=== PATIENT | male | born 1980 | race African-American/Black ===

== ENCOUNTER 2019-10-17 22:39 | Inpatient (IN) ==
[2019-10-18] MEDS ORDERED: ONDANSETRON 4 MG/2 ML VIAL IV STA (02:32)
[2019-10-18] MEDS ORDERED: NITROGLYCERIN 2% OINT 1 INCH/GM PACK TOP STA (02:32)
[2019-10-18] MEDS ORDERED: hydrALAZINE 20 MG/1 ML VIAL IV STA (02:32)
[2019-10-18] MEDS ORDERED: FUROSEMIDE 100 MG/10 ML VIAL IV STA (02:32)
[2019-10-18] MEDS ORDERED: ALBUTEROL/IPRATROPIUM 3 ML NEB RESP TX STA (02:32)
[2019-10-18 02:42] LABS: Basophils % 0.4 % (0.0-0.8); Eosinophils # 0.3 10*3/uL (0.0-0.87); Eosinophils % 2.6 % (0.00-10.9); Hematocrit 28.8 VOL% (42.0-52.0); Immature Granulocytes % 0.4 %; Immature Granulocytes Absolute 0.04 #; Lymphocytes # 1.1 10*3/uL (1.4-4.0); Lymphocytes % 11.3 % (21.2-54.2); Mean Corpuscular HGB Conc 31.3 GM/DL (32-36); Mean Corpuscular Volume 100.3 FL (87-102); Mean Platelet Volume 12.5 FL (9.6-12.0); Monocytes % 8.7 % (1.7-12.7); Neutrophils % 76.6 % (38.7-73.9); Platelet Count 112 T/CUMM (130-400); Red Blood Count 2.87 MC/CUMM (3.8-5.5); White Blood Count 10.1 T/CUMM (4-12)
[2019-10-18] MEDS ORDERED: CALCIUM CHLORIDE 1,000 MG/10 ML SYRINGE IV STA (02:44)
[2019-10-18 03:03] LABS: INR 1.1; PT Patient Result 11.7 SECS (9.8-11.9)
[2019-10-18 03:08] LABS: Alanine Aminotransferase 16 U/L (16-61); Albumin 3.4 G/DL (3.4-5.0); Alkaline Phosphatase 75 U/L (45-117); Aspartate Amino Transferase 9 U/L (0-37); Bilirubin,Total < 0.39 MG/DL (0.2-1.0); Blood Urea Nitrogen 118 MG/DL (7-18); Calcium 6.1 MG/DL (8.5-10.1); Estimated Glom Filtration Rate 5 ML/MIN; Glucose 92 MG/DL (74-106)
[2019-10-18] MEDS ORDERED: MAGNESIUM SULF RIDER 2 GM in PREMIX 1 EACH IV STA (03:13)
[2019-10-18] MEDS ORDERED: LABETALOL 20 MG/4 ML SYRINGE IV STA (03:26)
[2019-10-18 03:39] LABS: Apearance,Urine CLEAR (Clear); Bacteria,Urine Occasional /HPF (Few); Bilirubin,Urine Negative (Negative); Blood, Urine Moderate mg/dL (Negative); Glucose,Urine (UA) Negative (Negative); Ketones,Urine Negative (Negative); Nitrite,Urine Negative (Negative); Protein,Urine 100 MG/DL; RBC,Urine 2 /HPF (0-4); Squamous Epithelial Cell,Urine Occasional /HPF (0-10); Urine Color Straw (Yellow); Urine Specific Gravity 1.006 (1.001-1.035); Urine Urobilinogen < 2.0 EU/DL (0.2-1.0); WBC,Urine 2 /HPF (0-6)
[2019-10-18] MEDS ORDERED: GLUCAGON 1 MG VIAL IM PRN (04:00)
[2019-10-18] MEDS ORDERED: ONDANSETRON 4 MG/2 ML VIAL IV PRN (04:00)
[2019-10-18] MEDS ORDERED: LABETALOL 100 MG/20 ML VIAL IV PRN (04:00)
[2019-10-18] MEDS ORDERED: DEXTROSE 50% 25 GM/50 ML VIAL IV PRN (04:00)
[2019-10-18] MEDS ORDERED: MAGNESIUM SULF RIDER 4 GM in PREMIX 1 EACH IV ONE (08:33)
[2019-10-18] MEDS ORDERED: AZITHROMYCIN INJ 500 MG in SODIUM CHLORIDE 0.9% 250 ML IV SCH (09:00)
[2019-10-18] MEDS: ACETAMINOPHEN 325 MG TABLET PO PRN (17:12)
[2019-10-18] MEDS: amLODIPine 10 MG TABLET PO SCH (17:16)
[2019-10-18] MEDS: cefTRIAXone 1,000 MG in SYRINGE 1 EACH IV SCH (19:00)
[2019-10-18] MEDS: CALCIUM (CARBONATE) 500 MG TABLET PO SCH (21:18)
[2019-10-18] MEDS: MAGNESIUM CHLORIDE 64 MG TABLET PO SCH (21:18)
[2019-10-19] MEDS: ACETAMINOPHEN 325 MG TABLET PO PRN (05:24)
[2019-10-19 05:49] LABS: Basophils % 0.4 % (0.0-0.8); Eosinophils # 0.3 10*3/uL (0.0-0.87); Eosinophils % 2.8 % (0.00-10.9); Hematocrit 28.6 VOL% (42.0-52.0); Hemoglobin 8.6 GM/DL (14.0-18.0); Immature Granulocytes % 0.5 %; Immature Granulocytes Absolute 0.05 #; Lymphocytes # 0.8 10*3/uL (1.4-4.0); Lymphocytes % 8.6 % (21.2-54.2); Mean Corpuscular HGB Conc 30.1 GM/DL (32-36); Mean Corpuscular Volume 102.5 FL (87-102); Mean Platelet Volume 13.2 FL (9.6-12.0); Monocytes % 9.2 % (1.7-12.7); Neutrophils % 78.5 % (38.7-73.9); Platelet Count 103 T/CUMM (130-400); Red Blood Count 2.79 MC/CUMM (3.8-5.5); White Blood Count 9.4 T/CUMM (4-12)
[2019-10-19 06:09] LABS: Hypochromasia 1+; Platelet Estimate Decreased
[2019-10-19 06:18] LABS: Alanine Aminotransferase 13 U/L (16-61); Albumin 3.1 G/DL (3.4-5.0); Alkaline Phosphatase 69 U/L (45-117); Aspartate Amino Transferase 8 U/L (0-37); Bilirubin,Total < 0.39 MG/DL (0.2-1.0); Blood Urea Nitrogen 121 MG/DL (7-18); Calcium 6.7 MG/DL (8.5-10.1); Estimated Glom Filtration Rate 5 ML/MIN; Glucose 89 MG/DL (74-106); Osmolality,Calculated 320.1 MOS/KG (273-304); Total Protein 7.3 G/DL (6.4-8.3)
[2019-10-19] MEDS: amLODIPine 10 MG TABLET PO SCH (08:55)
[2019-10-19] MEDS: CALCIUM (CARBONATE) 500 MG TABLET PO SCH ×3 (08:55→20:34)
[2019-10-19] MEDS: MAGNESIUM CHLORIDE 64 MG TABLET PO SCH ×2 (08:55→20:34)
[2019-10-19] MEDS: cefTRIAXone 1,000 MG in SYRINGE 1 EACH IV SCH (08:56)
[2019-10-19] MEDS: AZITHROMYCIN INJ 500 MG in SODIUM CHLORIDE 0.9% 250 ML IV SCH (11:55)
[2019-10-19] MEDS: hydrALAZINE 20 MG/1 ML VIAL IV PRN (20:35)
[2019-10-20] MEDS: hydrALAZINE 20 MG/1 ML VIAL IV PRN ×2 (03:35→16:32)
[2019-10-20] MEDS ORDERED: ceFAZolin 1,000 MG in SYRINGE 1 EACH IV ONE (06:00)
[2019-10-20 06:27] LABS: Basophils # 0.1 10*3/uL (0.0-0.2); Basophils % 0.5 % (0.0-0.8); Eosinophils # 0.3 10*3/uL (0.0-0.87); Eosinophils % 2.7 % (0.00-10.9); Hematocrit 30.3 VOL% (42.0-52.0); Hemoglobin 9.1 GM/DL (14.0-18.0); Immature Granulocytes % 0.4 %; Immature Granulocytes Absolute 0.04 #; Lymphocytes % 9.6 % (21.2-54.2); Mean Platelet Volume 12.8 FL (9.6-12.0); Monocytes % 6.4 % (1.7-12.7); Neutrophils % 80.4 % (38.7-73.9); Platelet Count 142 T/CUMM (130-400); Red Blood Count 3.03 MC/CUMM (3.8-5.5); Red Cell Distribution Width 14.1 % (9.3-17.3); White Blood Count 10.2 T/CUMM (4-12)
[2019-10-20 06:50] LABS: Calcium 7.8 MG/DL (8.5-10.1); Osmolality,Calculated 315.4 MOS/KG (273-304)
[2019-10-20] MEDS ORDERED: BUPIVACAINE 0.25% /EPI 10 ML VIAL ONE (08:07)
[2019-10-20] MEDS ORDERED: HEPARIN 5,000 UNIT/1 ML VIAL ONE (08:08)
[2019-10-20] MEDS ORDERED: LIDOCAINE 1% 20 ML VIAL ONE (08:08)
[2019-10-20] MEDS ORDERED: SODIUM CHLORIDE 0.9% 250 ML IV SCH (09:00)
[2019-10-20] MEDS ORDERED: LIDOCAINE 2% 5 ML VIAL ONE (09:25)
[2019-10-20] MEDS ORDERED: propofoL 200 MG/20 ML VIAL IV ONE (09:25)
[2019-10-20] MEDS ORDERED: MIDAZOLAM 2 MG/2 ML VIAL ONE (09:25)
[2019-10-20] MEDS ORDERED: LABETALOL 20 MG/4 ML SYRINGE IV ONE (09:26)
[2019-10-20] MEDS ORDERED: SODIUM CHLORIDE 0.9% 100 ML IV ONE (09:26)
[2019-10-20] MEDS ORDERED: fentaNYL 100 MCG/2 ML VIAL ONE (09:26)
[2019-10-20] MEDS ORDERED: LABETALOL 100 MG/20 ML VIAL IV ONE (09:28)
[2019-10-20] MEDS: amLODIPine 10 MG TABLET PO SCH (11:40)
[2019-10-20] MEDS: CALCIUM (CARBONATE) 500 MG TABLET PO SCH ×3 (11:40→21:25)
[2019-10-20] MEDS: cefTRIAXone 1,000 MG in SYRINGE 1 EACH IV SCH (11:41)
[2019-10-20] MEDS: AZITHROMYCIN INJ 500 MG in SODIUM CHLORIDE 0.9% 250 ML IV SCH (11:41)
[2019-10-20] MEDS: MAGNESIUM CHLORIDE 64 MG TABLET PO SCH ×2 (11:41→21:25)
[2019-10-20 12:24] LABS: Hepatitis B Core IgM Quant 0.13 Index; Hepatitis B Surface Ag Quant 0.43 Index; Hepatitis B Surface Ag Result Negative (Negative); Hepatitis C Virus Ab Quant 0.11 Index; Hepatitis C Virus Ab Result Negative (Negative)
[2019-10-20] MEDS ORDERED: HEPARIN 10,000 UNIT/10 ML VIAL IV SCH (12:30)
[2019-10-20] MEDS: SEVELAMER CARBONATE 800 MG TABLET PO SCH (17:52)
[2019-10-21 05:56] LABS: Basophils % 0.2 % (0.0-0.8); Eosinophils # 0.2 10*3/uL (0.0-0.87); Eosinophils % 2.7 % (0.00-10.9); Hematocrit 25.6 VOL% (42.0-52.0); Immature Granulocytes % 0.2 %; Immature Granulocytes Absolute 0.02 #; Lymphocytes # 0.7 10*3/uL (1.4-4.0); Lymphocytes % 8.1 % (21.2-54.2); Mean Corpuscular HGB Conc 31.3 GM/DL (32-36); Mean Corpuscular Volume 100.4 FL (87-102); Mean Platelet Volume 13.6 FL (9.6-12.0); Monocytes % 9.3 % (1.7-12.7); Neutrophils % 79.5 % (38.7-73.9); Red Blood Count 2.55 MC/CUMM (3.8-5.5); White Blood Count 8.5 T/CUMM (4-12)
[2019-10-21 05:59] LABS: Platelet Count 95 T/CUMM (130-400)
[2019-10-21 06:20] LABS: Calcium 7.5 MG/DL (8.5-10.1); Osmolality,Calculated 316.1 MOS/KG (273-304)
[2019-10-21 06:24] LABS: Hypochromasia 1+; Ovalocytes Slight
[2019-10-21 06:25] LABS: Platelet Estimate Decreased
[2019-10-21] MEDS: CALCIUM (CARBONATE) 500 MG TABLET PO SCH ×3 (10:51→20:57)
[2019-10-21] MEDS: SEVELAMER CARBONATE 800 MG TABLET PO SCH ×3 (10:51→17:12)
[2019-10-21] MEDS: AZITHROMYCIN INJ 500 MG in SODIUM CHLORIDE 0.9% 250 ML IV SCH (13:49)
[2019-10-21] MEDS: MAGNESIUM CHLORIDE 64 MG TABLET PO SCH ×2 (13:51→20:57)
[2019-10-21] MEDS: cefTRIAXone 1,000 MG in SYRINGE 1 EACH IV SCH (14:15)
[2019-10-21] MEDS: amLODIPine 10 MG TABLET PO SCH (14:17)
[2019-10-22 05:07] LABS: Basophils % 0.4 % (0.0-0.8); Eosinophils # 0.2 10*3/uL (0.0-0.87); Eosinophils % 1.9 % (0.00-10.9); Hematocrit 26.8 VOL% (42.0-52.0); Hemoglobin 8.2 GM/DL (14.0-18.0); Immature Granulocytes % 0.4 %; Immature Granulocytes Absolute 0.04 #; Lymphocytes % 9.7 % (21.2-54.2); Mean Corpuscular HGB Conc 30.6 GM/DL (32-36); Mean Corpuscular Volume 100.4 FL (87-102); Mean Platelet Volume 12.4 FL (9.6-12.0); Monocytes % 9.6 % (1.7-12.7); Platelet Count 93 T/CUMM (130-400); Red Blood Count 2.67 MC/CUMM (3.8-5.5); Red Cell Distribution Width 14.1 % (9.3-17.3); White Blood Count 9.8 T/CUMM (4-12)
[2019-10-22 05:29] LABS: Calcium 7.9 MG/DL (8.5-10.1); Osmolality,Calculated 297.4 MOS/KG (273-304)
[2019-10-22 06:52] LABS: Anisocytosis 1+; Band Neutrophils 2 % (0-10); Eosinophils 1 % (0-10); Hypochromasia Slight; Lymphocytes 13 % (20-55); Platelet Estimate Decreased; Segmented Neutrophils 78 % (50-85); Total Cells Counted 100
[2019-10-22] MEDS: SEVELAMER CARBONATE 800 MG TABLET PO SCH ×3 (09:07→19:12)
[2019-10-22] MEDS: amLODIPine 10 MG TABLET PO SCH (09:07)
[2019-10-22] MEDS: CALCIUM (CARBONATE) 500 MG TABLET PO SCH ×3 (09:07→20:49)
[2019-10-22] MEDS: MAGNESIUM CHLORIDE 64 MG TABLET PO SCH ×2 (09:07→20:49)
[2019-10-22] MEDS: cefTRIAXone 1,000 MG in SYRINGE 1 EACH IV SCH (09:10)
[2019-10-22] MEDS: AZITHROMYCIN INJ 500 MG in SODIUM CHLORIDE 0.9% 250 ML IV SCH (09:20)
[2019-10-23 06:37] LABS: Basophils # 0.1 10*3/uL (0.0-0.2); Basophils % 0.5 % (0.0-0.8); Eosinophils # 0.2 10*3/uL (0.0-0.87); Hematocrit 28.6 VOL% (42.0-52.0); Hemoglobin 8.5 GM/DL (14.0-18.0); Immature Granulocytes % 0.5 %; Immature Granulocytes Absolute 0.05 #; Lymphocytes # 1.1 10*3/uL (1.4-4.0); Lymphocytes % 11.4 % (21.2-54.2); Mean Corpuscular HGB Conc 29.7 GM/DL (32-36); Mean Corpuscular Volume 102.1 FL (87-102); Monocytes % 11.2 % (1.7-12.7); Neutrophils % 74.4 % (38.7-73.9); Platelet Count 100 T/CUMM (130-400); Red Cell Distribution Width 14.1 % (9.3-17.3); White Blood Count 9.8 T/CUMM (4-12)
[2019-10-23 06:44] LABS: Calcium 8.6 MG/DL (8.5-10.1); Osmolality,Calculated 283.8 MOS/KG (273-304)
[2019-10-23 07:46] LABS: Ovalocytes Few; Platelet Estimate Adequate; Polychromasia Slight; Target Cells Few
[2019-10-23] MEDS: cefTRIAXone 1,000 MG in SYRINGE 1 EACH IV SCH (09:27)
[2019-10-23] MEDS: SEVELAMER CARBONATE 800 MG TABLET PO SCH ×3 (09:27→16:00)
[2019-10-23] MEDS: amLODIPine 10 MG TABLET PO SCH (09:27)
[2019-10-23] MEDS: CALCIUM (CARBONATE) 500 MG TABLET PO SCH ×3 (09:27→22:07)
[2019-10-23] MEDS: MAGNESIUM CHLORIDE 64 MG TABLET PO SCH ×2 (09:27→22:07)
[2019-10-23] MEDS: AZITHROMYCIN INJ 500 MG in SODIUM CHLORIDE 0.9% 250 ML IV SCH (09:28)
[2019-10-23] MEDS: hydrALAZINE 20 MG/1 ML VIAL IV PRN (16:00)
[2019-10-24 06:13] LABS: Basophils # 0.1 10*3/uL (0.0-0.2); Basophils % 0.5 % (0.0-0.8); Eosinophils # 0.2 10*3/uL (0.0-0.87); Eosinophils % 2.1 % (0.00-10.9); Hemoglobin 8.3 GM/DL (14.0-18.0); Immature Granulocytes % 0.6 %; Immature Granulocytes Absolute 0.06 #; Lymphocytes # 1.1 10*3/uL (1.4-4.0); Lymphocytes % 9.8 % (21.2-54.2); Mean Corpuscular HGB Conc 29.6 GM/DL (32-36); Mean Corpuscular Volume 104.5 FL (87-102); Mean Platelet Volume 12.9 FL (9.6-12.0); Platelet Count 107 T/CUMM (130-400); Red Blood Count 2.68 MC/CUMM (3.8-5.5); Red Cell Distribution Width 13.9 % (9.3-17.3); White Blood Count 10.7 T/CUMM (4-12)
[2019-10-24 06:36] LABS: Osmolality,Calculated 286.7 MOS/KG (273-304)
[2019-10-24] MEDS: amLODIPine 10 MG TABLET PO SCH (10:09)
[2019-10-24] MEDS: SEVELAMER CARBONATE 800 MG TABLET PO SCH ×3 (10:09→16:20)
[2019-10-24] MEDS: CALCIUM (CARBONATE) 500 MG TABLET PO SCH ×3 (10:09→21:15)
[2019-10-24] MEDS: MAGNESIUM CHLORIDE 64 MG TABLET PO SCH ×2 (10:10→21:15)
[2019-10-24] MEDS: cefTRIAXone 1,000 MG in SYRINGE 1 EACH IV SCH (13:50)
[2019-10-24] MEDS: AZITHROMYCIN INJ 500 MG in SODIUM CHLORIDE 0.9% 250 ML IV SCH (13:50)
[2019-10-24] MEDS ORDERED: DOCUSATE SODIUM 100 MG CAPSULE PO PRN (19:14)
[2019-10-25 04:18] LABS: Basophils # 0.1 10*3/uL (0.0-0.2); Basophils % 0.5 % (0.0-0.8); Eosinophils # 0.2 10*3/uL (0.0-0.87); Eosinophils % 2.2 % (0.00-10.9); Hematocrit 27.7 VOL% (42.0-52.0); Hemoglobin 8.6 GM/DL (14.0-18.0); Immature Granulocytes % 0.5 %; Immature Granulocytes Absolute 0.05 #; Lymphocytes # 1.2 10*3/uL (1.4-4.0); Lymphocytes % 11.4 % (21.2-54.2); Mean Corpuscular Volume 100.7 FL (87-102); Mean Platelet Volume 12.4 FL (9.6-12.0); Monocytes % 10.1 % (1.7-12.7); Neutrophils % 75.3 % (38.7-73.9); Platelet Count 110 T/CUMM (130-400); Red Blood Count 2.75 MC/CUMM (3.8-5.5); Red Cell Distribution Width 14.1 % (9.3-17.3); White Blood Count 10.2 T/CUMM (4-12)
[2019-10-25 04:38] LABS: Calcium 8.9 MG/DL (8.5-10.1); Osmolality,Calculated 280.8 MOS/KG (273-304)
[2019-10-25] MEDS: MAGNESIUM CHLORIDE 64 MG TABLET PO SCH (08:20)
[2019-10-25] MEDS: cefTRIAXone 1,000 MG in SYRINGE 1 EACH IV SCH (08:21)
[2019-10-25] MEDS: CALCIUM (CARBONATE) 500 MG TABLET PO SCH ×2 (08:21→15:15)
[2019-10-25] MEDS: amLODIPine 10 MG TABLET PO SCH (08:21)
[2019-10-25] MEDS: SEVELAMER CARBONATE 800 MG TABLET PO SCH ×2 (08:22→12:02)
[2019-10-25] MEDS: AZITHROMYCIN INJ 500 MG in SODIUM CHLORIDE 0.9% 250 ML IV SCH (08:24)
[2019-10-25 11:29] VITALS: BP 150/103
== END 2019-10-25 15:30 | disposition home or self-care (01) | DRG 673 ==
LOC: N.ED 22:39 → N.EDINP 10-18 04:01 → N.3E 10-18 08:20
PROVIDERS: ADMIT Internal Medicine; ATTEND Internal Medicine

== ENCOUNTER 2019-11-16 11:46 | Inpatient (IN) ==
[2019-11-16 13:02] LABS: Basophils % 0.4 % (0.0-0.8); Hematocrit 35.4 VOL% (42.0-52.0); Hemoglobin 10.8 GM/DL (14.0-18.0); Immature Granulocytes % 0.2 %; Immature Granulocytes Absolute 0.01 #; Lymphocytes # 0.4 10*3/uL (1.4-4.0); Lymphocytes % 8.5 % (21.2-54.2); Mean Corpuscular HGB Conc 30.5 GM/DL (32-36); Mean Corpuscular Volume 103.5 FL (87-102); Mean Platelet Volume 11.2 FL (9.6-12.0); Monocytes % 13.6 % (1.7-12.7); Neutrophils % 77.3 % (38.7-73.9); Platelet Count 110 T/CUMM (130-400); Red Blood Count 3.42 MC/CUMM (3.8-5.5); Red Cell Distribution Width 14.6 % (9.3-17.3); White Blood Count 4.9 T/CUMM (4-12)
[2019-11-16 13:21] LABS: Albumin 3.7 G/DL (3.4-5.0); Bilirubin,Total 0.4 MG/DL (0.2-1.0); Calcium 8.2 MG/DL (8.5-10.1); Total Protein 8.5 G/DL (6.4-8.3)
[2019-11-16] MEDS ORDERED: ONDANSETRON 4 MG/2 ML VIAL ONE (14:00)
[2019-11-16] MEDS ORDERED: HYDROmorphone 2 MG/1 ML VIAL ONE (14:00)
[2019-11-16] MEDS ORDERED: HYDROmorphone 2 MG/1 ML VIAL IV STA (14:08)
[2019-11-16] MEDS ORDERED: ONDANSETRON 4 MG/2 ML VIAL IV STA (14:08)
[2019-11-16 14:29] LABS: Bilirubin,Urine Negative (Negative); Blood, Urine Moderate mg/dL (Negative); Glucose,Urine (UA) 150 mg/dL (Negative); Ketones,Urine 5 mg/dL (Negative); Nitrite,Urine Negative (Negative); Protein,Urine >=500 MG/DL; RBC,Urine 38138 /HPF (0-4); Urine Appearance CLOUDY (Clear); Urine Color Red (Yellow); Urine Specific Gravity 1.014 (1.001-1.035); Urine Urobilinogen < 2.0 EU/DL (0.2-1.0)
[2019-11-16] MEDS ORDERED: DEXTROSE 50% 25 GM/50 ML VIAL IV PRN (15:09)
[2019-11-16] MEDS ORDERED: GLUCAGON 1 MG VIAL IM PRN (15:09)
[2019-11-16] MEDS ORDERED: MORPHINE 4 MG/1 ML VIAL IV PRN (15:09)
[2019-11-16 15:10] LABS: PT Patient Result 10.9 SECS (9.8-11.9); Partial Thromboplastin Time 40.4 SECS (23.9-33.8)
[2019-11-16] MEDS ORDERED: hydrALAZINE 20 MG/1 ML VIAL IV PRN (16:47)
[2019-11-16] MEDS: SODIUM CHLORIDE 0.9% 1,000 ML IV SCH (17:00)
[2019-11-16] MEDS: amLODIPine 10 MG TABLET PO SCH (17:00)
[2019-11-16 18:30] LABS: Hematocrit 33.3 VOL% (42.0-52.0)
[2019-11-16] MEDS: SEVELAMER CARBONATE 800 MG TABLET PO SCH (18:58)
[2019-11-16] MEDS: CALCIUM (CARBONATE) 500 MG TABLET PO SCH (20:40)
[2019-11-16] MEDS: carvediloL 25 MG TABLET PO SCH (20:40)
[2019-11-16] MEDS: HYDROmorphone 2 MG/1 ML VIAL IV PRN (20:40)
[2019-11-16 21:14] LABS: Hematocrit 33.2 VOL% (42.0-52.0)
[2019-11-17] MEDS: SODIUM CHLORIDE 0.9% 1,000 ML IV SCH ×3 (02:05→23:14)
[2019-11-17 05:42] LABS: Basophils % 0.2 % (0.0-0.8); Hematocrit 29.5 VOL% (42.0-52.0); Immature Granulocytes % 0.6 %; Immature Granulocytes Absolute 0.03 #; Lymphocytes # 0.6 10*3/uL (1.4-4.0); Lymphocytes % 12.5 % (21.2-54.2); Mean Corpuscular HGB Conc 30.5 GM/DL (32-36); Mean Platelet Volume 11.5 FL (9.6-12.0); Monocytes % 11.3 % (1.7-12.7); Neutrophils % 75.4 % (38.7-73.9); Platelet Count 89 T/CUMM (130-400); Red Blood Count 2.81 MC/CUMM (3.8-5.5); Red Cell Distribution Width 14.4 % (9.3-17.3); White Blood Count 4.8 T/CUMM (4-12)
[2019-11-17 06:02] LABS: Hypochromasia 1+; Ovalocytes Slight; Platelet Estimate Decreased
[2019-11-17 06:03] LABS: Microcytosis Slight
[2019-11-17 06:14] LABS: Calcium 7.7 MG/DL (8.5-10.1)
[2019-11-17 06:39] LABS: Folate 10.3 NG/ML (5.4-24.0)
[2019-11-17 09:26] LABS: Hematocrit 29.7 VOL% (42.0-52.0); Hemoglobin 8.9 GM/DL (14.0-18.0)
[2019-11-17] MEDS: SEVELAMER CARBONATE 800 MG TABLET PO SCH ×3 (10:15→16:08)
[2019-11-17] MEDS ORDERED: HEPARIN 10,000 UNIT/10 ML VIAL IV PRN (11:04)
[2019-11-17] MEDS: CALCIUM (CARBONATE) 500 MG TABLET PO SCH ×3 (12:13→20:43)
[2019-11-17] MEDS: amLODIPine 10 MG TABLET PO SCH (12:17)
[2019-11-17] MEDS: carvediloL 25 MG TABLET PO SCH ×2 (12:17→17:50)
[2019-11-17] MEDS: HYDROmorphone 2 MG/1 ML VIAL IV PRN (12:35)
[2019-11-17] MEDS: ACETAMINOPHEN 325 MG TABLET PO PRN ×2 (16:11→20:43)
[2019-11-17] MEDS: ZALEPLON 5 MG CAPSULE PO PRN (23:14)
[2019-11-18] MEDS: ACETAMINOPHEN 325 MG TABLET PO PRN ×2 (00:55→04:34)
[2019-11-18] MEDS ORDERED: ALBUTEROL/IPRATROPIUM 3 ML NEB RESP TX PRN (01:26)
[2019-11-18 06:18] LABS: Basophils % 0.3 % (0.0-0.8); Hemoglobin 7.9 GM/DL (14.0-18.0); Immature Granulocytes % 0.3 %; Immature Granulocytes Absolute 0.01 #; Lymphocytes # 0.9 10*3/uL (1.4-4.0); Lymphocytes % 23.6 % (21.2-54.2); Mean Corpuscular HGB Conc 30.4 GM/DL (32-36); Mean Corpuscular Volume 103.6 FL (87-102); Mean Platelet Volume 10.9 FL (9.6-12.0); Monocytes % 13.1 % (1.7-12.7); Neutrophils % 62.7 % (38.7-73.9); Platelet Count 90 T/CUMM (130-400); Red Blood Count 2.51 MC/CUMM (3.8-5.5); Red Cell Distribution Width 13.9 % (9.3-17.3); White Blood Count 3.8 T/CUMM (4-12)
[2019-11-18 06:39] LABS: Calcium 7.2 MG/DL (8.5-10.1); Osmolality,Calculated 287.8 MOS/KG (273-304)
[2019-11-18 06:40] LABS: Hypochromasia 1+; Lymphocytes 20 % (20-55); Microcytosis Slight; Ovalocytes Slight; Platelet Estimate Decreased; Segmented Neutrophils 69 % (50-85); Total Cells Counted 100
[2019-11-18 06:46] LABS: Risk Ratio 3.29; VLDL CHOLESTEROL 27.6 MG/DL
[2019-11-18] MEDS: HYDROmorphone 2 MG/1 ML VIAL IV PRN (13:05)
[2019-11-18] MEDS: ONDANSETRON 4 MG/2 ML VIAL IV PRN ×2 (13:06→16:13)
[2019-11-18] MEDS: CALCIUM (CARBONATE) 500 MG TABLET PO SCH ×3 (16:04→20:48)
[2019-11-18] MEDS: SEVELAMER CARBONATE 800 MG TABLET PO SCH ×3 (16:05→17:28)
[2019-11-18] MEDS: carvediloL 25 MG TABLET PO SCH ×2 (16:50→17:28)
[2019-11-18] MEDS: allopurinoL 100 MG TABLET PO SCH (16:50)
[2019-11-18] MEDS: amLODIPine 10 MG TABLET PO SCH (16:50)
[2019-11-18] MEDS: GABAPENTIN 300 MG CAPSULE PO SCH ×2 (16:51→20:47)
[2019-11-18] MEDS: cefTRIAXone 1,000 MG in SYRINGE 1 EACH IV SCH (18:00)
[2019-11-18] MEDS: ZALEPLON 5 MG CAPSULE PO PRN (20:47)
[2019-11-19 06:02] LABS: Basophils % 0.2 % (0.0-0.8); Hematocrit 28.3 VOL% (42.0-52.0); Hemoglobin 8.5 GM/DL (14.0-18.0); Immature Granulocytes % 0.4 %; Immature Granulocytes Absolute 0.02 #; Lymphocytes # 0.8 10*3/uL (1.4-4.0); Lymphocytes % 17.8 % (21.2-54.2); Mean Corpuscular Volume 103.3 FL (87-102); Mean Platelet Volume 11.5 FL (9.6-12.0); Monocytes % 12.5 % (1.7-12.7); Neutrophils % 69.1 % (38.7-73.9); Platelet Count 104 T/CUMM (130-400); Red Blood Count 2.74 MC/CUMM (3.8-5.5); Red Cell Distribution Width 13.8 % (9.3-17.3); White Blood Count 4.6 T/CUMM (4-12)
[2019-11-19 06:20] LABS: Osmolality,Calculated 281.8 MOS/KG (273-304)
[2019-11-19] MEDS: SEVELAMER CARBONATE 800 MG TABLET PO SCH ×3 (08:48→17:05)
[2019-11-19] MEDS: GABAPENTIN 300 MG CAPSULE PO SCH (08:48)
[2019-11-19] MEDS: CALCIUM (CARBONATE) 500 MG TABLET PO SCH ×3 (08:48→20:59)
[2019-11-19] MEDS: amLODIPine 10 MG TABLET PO SCH (08:49)
[2019-11-19] MEDS: carvediloL 25 MG TABLET PO SCH ×2 (08:49→17:06)
[2019-11-19] MEDS: allopurinoL 100 MG TABLET PO SCH (08:49)
[2019-11-19] MEDS: ACETAMINOPHEN 325 MG TABLET PO PRN ×2 (08:49→17:09)
[2019-11-19] MEDS: cefTRIAXone 1,000 MG in SYRINGE 1 EACH IV SCH (11:41)
[2019-11-19 11:42] LABS: Platelet Estimate Decreased
[2019-11-19] MEDS: AZITHROMYCIN INJ 500 MG in SODIUM CHLORIDE 0.9% 250 ML IV SCH (12:51)
[2019-11-19] MEDS ORDERED: ALUM/MAG/SIMETH/LIDO VISC 1:1 30 ML BOTTLE PO STA (18:50)
[2019-11-20] MEDS: HYDROmorphone 2 MG/1 ML VIAL IV PRN (05:30)
[2019-11-20 06:25] LABS: Hematocrit 26.9 VOL% (42.0-52.0); Hemoglobin 8.4 GM/DL (14.0-18.0); Immature Granulocytes % 0.3 %; Immature Granulocytes Absolute 0.01 #; Lymphocytes # 0.4 10*3/uL (1.4-4.0); Lymphocytes % 11.4 % (21.2-54.2); Mean Corpuscular HGB Conc 31.2 GM/DL (32-36); Mean Corpuscular Volume 102.3 FL (87-102); Mean Platelet Volume 11.7 FL (9.6-12.0); Monocytes % 11.1 % (1.7-12.7); Neutrophils % 77.2 % (38.7-73.9); Platelet Count 111 T/CUMM (130-400); Red Blood Count 2.63 MC/CUMM (3.8-5.5); Red Cell Distribution Width 13.5 % (9.3-17.3); White Blood Count 3.5 T/CUMM (4-12)
[2019-11-20 06:51] LABS: Calcium 7.7 MG/DL (8.5-10.1)
[2019-11-20] MEDS ORDERED: NALOXONE 0.4 MG/ML VIAL ONE ×2 (08:17→08:23)
[2019-11-20] MEDS ORDERED: METOPROLOL TARTRATE 5 MG/5 ML VIAL IV ONE (08:29)
[2019-11-20 08:50] LABS: ABG Base Excess -0.2 MMOL/L (-2.5-2.5); ABG HCO3 24.3 MMOL/L (20-26); ABG Oxygen Saturation 97.4 % (95-100); ABG PH 7.323 (7.35-7.45); ABG TCO2 24.3 MMOL/L (23-27); Allen Test Positive
[2019-11-20 09:58] LABS: Basophils % 0.3 % (0.0-0.8); Hematocrit 26.7 VOL% (42.0-52.0); Hemoglobin 8.2 GM/DL (14.0-18.0); Immature Granulocytes % 0.6 %; Immature Granulocytes Absolute 0.02 #; Lymphocytes # 0.3 10*3/uL (1.4-4.0); Lymphocytes % 8.9 % (21.2-54.2); Mean Corpuscular HGB Conc 30.7 GM/DL (32-36); Mean Corpuscular Volume 102.7 FL (87-102); Mean Platelet Volume 10.7 FL (9.6-12.0); Monocytes % 10.9 % (1.7-12.7); Neutrophils % 79.3 % (38.7-73.9); Platelet Count 115 T/CUMM (130-400); Red Cell Distribution Width 13.6 % (9.3-17.3); White Blood Count 3.5 T/CUMM (4-12)
[2019-11-20 10:19] LABS: Troponin I 0.028 NG/ML (0.00-0.045)
[2019-11-20] MEDS: CALCIUM (CARBONATE) 500 MG TABLET PO SCH ×4 (10:27→20:54)
[2019-11-20] MEDS: amLODIPine 10 MG TABLET PO SCH (10:27)
[2019-11-20] MEDS: carvediloL 25 MG TABLET PO SCH ×2 (10:27→16:56)
[2019-11-20] MEDS: SEVELAMER CARBONATE 800 MG TABLET PO SCH ×3 (10:27→16:56)
[2019-11-20 10:46] LABS: Calcium 7.6 MG/DL (8.5-10.1)
[2019-11-20 11:33] LABS: Elliptocytes Few; Tear Drop Cells Few
[2019-11-20 11:34] LABS: Anisocytosis 1+; Ovalocytes Few; Platelet Estimate Adequate; Polychromasia Slight
[2019-11-20] MEDS: cefTRIAXone 1,000 MG in SYRINGE 1 EACH IV SCH (12:35)
[2019-11-20] MEDS: AZITHROMYCIN INJ 500 MG in SODIUM CHLORIDE 0.9% 250 ML IV SCH (12:35)
[2019-11-20 19:02] LABS: Hematocrit 26.6 VOL% (42.0-52.0)
[2019-11-21 03:46] LABS: Basophils % 0.3 % (0.0-0.8); Eosinophils % 0.3 % (0.00-10.9); Hematocrit 25.9 VOL% (42.0-52.0); Hemoglobin 8.1 GM/DL (14.0-18.0); Immature Granulocytes % 0.3 %; Immature Granulocytes Absolute 0.01 #; Lymphocytes # 0.5 10*3/uL (1.4-4.0); Lymphocytes % 12.1 % (21.2-54.2); Mean Corpuscular HGB Conc 31.3 GM/DL (32-36); Mean Corpuscular Volume 102.8 FL (87-102); Monocytes % 6.9 % (1.7-12.7); Neutrophils % 80.1 % (38.7-73.9); Platelet Count 108 T/CUMM (130-400); Red Blood Count 2.52 MC/CUMM (3.8-5.5); Red Cell Distribution Width 13.7 % (9.3-17.3); White Blood Count 3.8 T/CUMM (4-12)
[2019-11-21 03:58] LABS: Calcium 7.7 MG/DL (8.5-10.1)
[2019-11-21] MEDS: carvediloL 25 MG TABLET PO SCH ×2 (11:40→17:47)
[2019-11-21] MEDS: CALCIUM (CARBONATE) 500 MG TABLET PO SCH ×3 (11:41→20:36)
[2019-11-21] MEDS: SEVELAMER CARBONATE 800 MG TABLET PO SCH ×3 (11:41→17:58)
[2019-11-21] MEDS: AZITHROMYCIN INJ 500 MG in SODIUM CHLORIDE 0.9% 250 ML IV SCH (12:19)
[2019-11-21] MEDS: cefTRIAXone 1,000 MG in SYRINGE 1 EACH IV SCH (13:14)
[2019-11-21 13:16] LABS: Ferritin 984.5 ng/ml (26-388)
[2019-11-21] MEDS: amLODIPine 10 MG TABLET PO SCH (13:40)
[2019-11-21 15:45] LABS: Pt O2 Delivery Device BIPAP
[2019-11-21 15:46] LABS: ABG Base Excess 1.5 MMOL/L (-2.5-2.5); ABG HCO3 25.7 MMOL/L (20-26); ABG PCO2 48.4 MM HG (35-48); ABG PH 7.361 (7.35-7.45); ABG PO2 68.8 MM HG (80-95); ABG TCO2 25.5 MMOL/L (23-27)
[2019-11-21] MEDS: PANTOPRAZOLE 40 MG VIAL IV SCH (16:50)
[2019-11-22 06:21] LABS: Basophils % 0.2 % (0.0-0.8); Hematocrit 27.4 VOL% (42.0-52.0); Hemoglobin 8.4 GM/DL (14.0-18.0); Immature Granulocytes Absolute 0.05 #; Lymphocytes # 0.3 10*3/uL (1.4-4.0); Lymphocytes % 6.5 % (21.2-54.2); Mean Corpuscular HGB Conc 30.7 GM/DL (32-36); Mean Corpuscular Volume 100.7 FL (87-102); Mean Platelet Volume 11.4 FL (9.6-12.0); Monocytes % 4.8 % (1.7-12.7); Neutrophils % 87.5 % (38.7-73.9); Platelet Count 140 T/CUMM (130-400); Red Blood Count 2.72 MC/CUMM (3.8-5.5); Red Cell Distribution Width 13.8 % (9.3-17.3); White Blood Count 5.2 T/CUMM (4-12)
[2019-11-22 06:35] LABS: Osmolality,Calculated 291.7 MOS/KG (273-304)
[2019-11-22 06:42] LABS: Hypochromasia 2+; Ovalocytes Slight
[2019-11-22 06:43] LABS: Microcytosis Slight; Platelet Estimate Adequate
[2019-11-22] MEDS: SEVELAMER CARBONATE 800 MG TABLET PO SCH ×4 (07:25→16:30)
[2019-11-22] MEDS: ACETAMINOPHEN 325 MG TABLET PO PRN ×3 (08:14→20:24)
[2019-11-22] MEDS: carvediloL 25 MG TABLET PO SCH ×2 (08:14→16:06)
[2019-11-22] MEDS: CALCIUM (CARBONATE) 500 MG TABLET PO SCH ×3 (08:14→20:24)
[2019-11-22] MEDS: PANTOPRAZOLE 40 MG VIAL IV SCH (08:43)
[2019-11-22] MEDS: amLODIPine 10 MG TABLET PO SCH (08:45)
[2019-11-22] MEDS ORDERED: SODIUM CHLORIDE 0.9% 500 ML IV ONE (11:39)
[2019-11-22] MEDS: cefTRIAXone 1,000 MG in SYRINGE 1 EACH IV SCH (12:35)
[2019-11-22] MEDS: AZITHROMYCIN INJ 500 MG in SODIUM CHLORIDE 0.9% 250 ML IV SCH (12:35)
[2019-11-22] MEDS ORDERED: SODIUM CHLORIDE 0.9% 1,000 ML IV PRN (12:44)
[2019-11-23 08:46] LABS: Basophils % 0.2 % (0.0-0.8); Eosinophils % 0.2 % (0.00-10.9); Hematocrit 24.4 VOL% (42.0-52.0); Hemoglobin 7.6 GM/DL (14.0-18.0); Immature Granulocytes % 0.7 %; Immature Granulocytes Absolute 0.03 #; Lymphocytes # 0.5 10*3/uL (1.4-4.0); Lymphocytes % 10.1 % (21.2-54.2); Mean Corpuscular HGB Conc 31.1 GM/DL (32-36); Mean Corpuscular Volume 101.7 FL (87-102); Mean Platelet Volume 11.5 FL (9.6-12.0); Monocytes % 4.2 % (1.7-12.7); Neutrophils % 84.6 % (38.7-73.9); Platelet Count 147 T/CUMM (130-400); White Blood Count 4.5 T/CUMM (4-12)
[2019-11-23] MEDS: CALCIUM (CARBONATE) 500 MG TABLET PO SCH ×3 (08:46→21:20)
[2019-11-23] MEDS: carvediloL 25 MG TABLET PO SCH ×2 (08:46→16:36)
[2019-11-23] MEDS: SEVELAMER CARBONATE 800 MG TABLET PO SCH ×3 (08:46→16:35)
[2019-11-23] MEDS: PANTOPRAZOLE 40 MG VIAL IV SCH (08:47)
[2019-11-23 09:10] LABS: Calcium 7.8 MG/DL (8.5-10.1); Osmolality,Calculated 296.8 MOS/KG (273-304)
[2019-11-23] MEDS: cefTRIAXone 1,000 MG in SYRINGE 1 EACH IV SCH (14:03)
[2019-11-23] MEDS: AZITHROMYCIN INJ 500 MG in SODIUM CHLORIDE 0.9% 250 ML IV SCH (14:03)
[2019-11-23] MEDS: DEXAMETHASONE 4 MG/1 ML VIAL IV SCH (16:35)
[2019-11-23] MEDS: ZINC GLUCONATE 50 MG TABLET PO SCH (16:35)
[2019-11-23] MEDS: ASCORBIC ACID 500 MG TABLET PO SCH (16:36)
[2019-11-23] MEDS: ACETAMINOPHEN 325 MG TABLET PO PRN (21:23)
[2019-11-24 04:22] LABS: Basophils % 0.2 % (0.0-0.8); Hematocrit 25.2 VOL% (42.0-52.0); Hemoglobin 7.8 GM/DL (14.0-18.0); Immature Granulocytes % 0.7 %; Immature Granulocytes Absolute 0.03 #; Lymphocytes # 0.3 10*3/uL (1.4-4.0); Lymphocytes % 7.3 % (21.2-54.2); Mean Corpuscular Volume 100.8 FL (87-102); Mean Platelet Volume 11.4 FL (9.6-12.0); Monocytes % 4.4 % (1.7-12.7); Neutrophils % 87.4 % (38.7-73.9); Platelet Count 191 T/CUMM (130-400); Red Cell Distribution Width 13.5 % (9.3-17.3); White Blood Count 4.4 T/CUMM (4-12)
[2019-11-24 04:38] LABS: Calcium 8.4 MG/DL (8.5-10.1); Osmolality,Calculated 288.1 MOS/KG (273-304)
[2019-11-24 04:38] LABS: ABG Base Excess -1.1 MMOL/L (-2.5-2.5); ABG HCO3 23.2 MMOL/L (20-26); ABG Oxygen Saturation 84.4 % (95-100); ABG PCO2 50.1 MM HG (35-48); ABG PH 7.317 (7.35-7.45); ABG PO2 57.8 MM HG (80-95); ABG TCO2 23.1 MMOL/L (23-27); Allen Test Positive; Pt O2 Delivery Device BIPAP
[2019-11-24] MEDS: ZINC GLUCONATE 50 MG TABLET PO SCH ×2 (08:57→12:15)
[2019-11-24] MEDS: ASCORBIC ACID 500 MG TABLET PO SCH ×2 (08:57→12:15)
[2019-11-24] MEDS: CALCIUM (CARBONATE) 500 MG TABLET PO SCH ×4 (08:57→21:42)
[2019-11-24] MEDS: carvediloL 25 MG TABLET PO SCH ×3 (08:57→17:01)
[2019-11-24] MEDS: SEVELAMER CARBONATE 800 MG TABLET PO SCH ×4 (08:57→17:01)
[2019-11-24] MEDS: PANTOPRAZOLE 40 MG VIAL IV SCH (08:59)
[2019-11-24] MEDS: DEXAMETHASONE 4 MG/1 ML VIAL IV SCH (09:00)
[2019-11-24] MEDS ORDERED: SODIUM CHLORIDE 0.65% NASAL SPRAY 45 ML BOTTLE BOTH NARES PRN (13:11)
[2019-11-24] MEDS: AZITHROMYCIN INJ 500 MG in SODIUM CHLORIDE 0.9% 250 ML IV SCH (14:32)
[2019-11-24] MEDS: cefTRIAXone 1,000 MG in SYRINGE 1 EACH IV SCH (14:32)
[2019-11-25 04:16] LABS: Hematocrit 25.9 VOL% (42.0-52.0); Hemoglobin 8.2 GM/DL (14.0-18.0); Immature Granulocytes % 0.9 %; Immature Granulocytes Absolute 0.05 #; Lymphocytes # 0.3 10*3/uL (1.4-4.0); Lymphocytes % 5.8 % (21.2-54.2); Mean Corpuscular HGB Conc 31.7 GM/DL (32-36); Mean Corpuscular Volume 100.4 FL (87-102); Mean Platelet Volume 11.5 FL (9.6-12.0); Neutrophils % 86.3 % (38.7-73.9); Platelet Count 207 T/CUMM (130-400); Red Blood Count 2.58 MC/CUMM (3.8-5.5); Red Cell Distribution Width 13.4 % (9.3-17.3); White Blood Count 5.8 T/CUMM (4-12)
[2019-11-25 04:30] LABS: Calcium 8.3 MG/DL (8.5-10.1); Osmolality,Calculated 298.1 MOS/KG (273-304)
[2019-11-25 04:44] LABS: Allen Test Positive; Pt O2 Delivery Device Other
[2019-11-25 04:48] LABS: ABG Base Excess -1.9 MMOL/L (-2.5-2.5); ABG HCO3 22.6 MMOL/L (20-26); ABG Oxygen Saturation 88.8 % (95-100); ABG PCO2 39.3 MM HG (35-48); ABG PH 7.375 (7.35-7.45); ABG PO2 62.3 MM HG (80-95); ABG TCO2 21.4 MMOL/L (23-27)
[2019-11-25] MEDS: CALCIUM (CARBONATE) 500 MG TABLET PO SCH ×3 (08:07→21:30)
[2019-11-25] MEDS: PANTOPRAZOLE 40 MG VIAL IV SCH (08:07)
[2019-11-25] MEDS: ZINC GLUCONATE 50 MG TABLET PO SCH (08:08)
[2019-11-25] MEDS: ASCORBIC ACID 500 MG TABLET PO SCH (08:08)
[2019-11-25] MEDS: carvediloL 25 MG TABLET PO SCH ×2 (08:08→18:20)
[2019-11-25] MEDS: SEVELAMER CARBONATE 800 MG TABLET PO SCH ×3 (08:08→18:20)
[2019-11-25] MEDS: DEXAMETHASONE 4 MG/1 ML VIAL IV SCH (08:09)
[2019-11-25] MEDS: AZITHROMYCIN INJ 500 MG in SODIUM CHLORIDE 0.9% 250 ML IV SCH (11:43)
[2019-11-25] MEDS: cefTRIAXone 1,000 MG in SYRINGE 1 EACH IV SCH (12:30)
[2019-11-26 04:30] LABS: ABG Base Excess 0.5 MMOL/L (-2.5-2.5); ABG HCO3 24.7 MMOL/L (20-26); ABG PCO2 46.1 MM HG (35-48); ABG PH 7.363 (7.35-7.45); ABG PO2 66.3 MM HG (80-95); ABG TCO2 23.8 MMOL/L (23-27); Allen Test Positive; Pt O2 Delivery Device Other
[2019-11-26 04:33] LABS: Hematocrit 25.8 VOL% (42.0-52.0); Hemoglobin 8.2 GM/DL (14.0-18.0); Immature Granulocytes Absolute 0.07 #; Lymphocytes # 0.3 10*3/uL (1.4-4.0); Lymphocytes % 4.3 % (21.2-54.2); Mean Corpuscular HGB Conc 31.8 GM/DL (32-36); Mean Corpuscular Volume 101.6 FL (87-102); Mean Platelet Volume 10.9 FL (9.6-12.0); Monocytes % 7.4 % (1.7-12.7); Neutrophils % 87.3 % (38.7-73.9); Platelet Count 208 T/CUMM (130-400); Red Blood Count 2.54 MC/CUMM (3.8-5.5); Red Cell Distribution Width 13.4 % (9.3-17.3); White Blood Count 7.3 T/CUMM (4-12)
[2019-11-26 04:51] LABS: Calcium 8.3 MG/DL (8.5-10.1)
[2019-11-26 04:52] LABS: Hypochromasia 2+; Lymphocytes 4 % (20-55); Microcytosis 1+; Ovalocytes Slight; Platelet Estimate Adequate; Segmented Neutrophils 88 % (50-85); Total Cells Counted 100
[2019-11-26 05:56] LABS: Hepatitis B Core IgM Quant 0.23 Index; Hepatitis B Surface Ag Quant < 0.10 Index; Hepatitis B Surface Ag Result Negative (Negative); Hepatitis C Virus Ab Quant 0.13 Index; Hepatitis C Virus Ab Result Negative (Negative)
[2019-11-26] MEDS: ASCORBIC ACID 500 MG TABLET PO SCH (07:58)
[2019-11-26] MEDS: carvediloL 25 MG TABLET PO SCH ×2 (07:58→17:07)
[2019-11-26] MEDS: SEVELAMER CARBONATE 800 MG TABLET PO SCH ×3 (07:58→17:07)
[2019-11-26] MEDS: ZINC GLUCONATE 50 MG TABLET PO SCH (07:59)
[2019-11-26] MEDS: CALCIUM (CARBONATE) 500 MG TABLET PO SCH ×3 (07:59→20:17)
[2019-11-26] MEDS: PANTOPRAZOLE 40 MG VIAL IV SCH (08:00)
[2019-11-26] MEDS: DEXAMETHASONE 4 MG/1 ML VIAL IV SCH (08:03)
[2019-11-26] MEDS ORDERED: FUROSEMIDE 40 MG/4 ML VIAL IV ONE (10:14)
[2019-11-26] MEDS: AZITHROMYCIN INJ 500 MG in SODIUM CHLORIDE 0.9% 250 ML IV SCH (12:00)
[2019-11-26] MEDS: methylPREDNISolone SOD SUC 125 MG/2 ML VIAL IV SCH ×2 (12:56→18:06)
[2019-11-27] MEDS: methylPREDNISolone SOD SUC 125 MG/2 ML VIAL IV SCH ×4 (00:02→18:27)
[2019-11-27 04:51] LABS: Lymphocytes # 0.4 10*3/uL (1.4-4.0); Mean Corpuscular Volume 96.9 FL (87-102); Mean Platelet Volume 11.5 FL (9.6-12.0); Monocytes % 3.2 % (1.7-12.7); Neutrophils % 91.8 % (38.7-73.9); Platelet Count 226 T/CUMM (130-400); Red Blood Count 2.58 MC/CUMM (3.8-5.5); Red Cell Distribution Width 13.5 % (9.3-17.3); White Blood Count 9.7 T/CUMM (4-12)
[2019-11-27 05:18] LABS: Band Neutrophils 1 % (0-10); Eosinophils 1 % (0-10); Lymphocytes 2 % (20-55); Platelet Estimate Normal; Segmented Neutrophils 95 % (50-85); Total Cells Counted 100
[2019-11-27 05:19] LABS: Hypochromasia Slight
[2019-11-27] MEDS: ASCORBIC ACID 500 MG TABLET PO SCH (08:24)
[2019-11-27] MEDS: ZINC GLUCONATE 50 MG TABLET PO SCH (08:24)
[2019-11-27] MEDS: SEVELAMER CARBONATE 800 MG TABLET PO SCH ×3 (08:24→16:20)
[2019-11-27] MEDS: CALCIUM (CARBONATE) 500 MG TABLET PO SCH ×3 (08:25→20:51)
[2019-11-27] MEDS: carvediloL 25 MG TABLET PO SCH ×2 (08:25→16:20)
[2019-11-27] MEDS: PANTOPRAZOLE 40 MG VIAL IV SCH (08:26)
[2019-11-27] MEDS ORDERED: FUROSEMIDE 100 MG/10 ML VIAL IV ONE (12:12)
[2019-11-27] MEDS: amLODIPine 5 MG TABLET PO SCH (16:06)
[2019-11-27] MEDS: POLYETHYLENE GLYCOL POWDER 17 GM PACK PO PRN (18:27)
[2019-11-28] MEDS: methylPREDNISolone SOD SUC 125 MG/2 ML VIAL IV SCH ×3 (00:43→18:32)
[2019-11-28 05:05] LABS: Hematocrit 24.2 VOL% (42.0-52.0); Hemoglobin 7.8 GM/DL (14.0-18.0); Immature Granulocytes % 1.7 %; Immature Granulocytes Absolute 0.21 #; Lymphocytes # 0.5 10*3/uL (1.4-4.0); Lymphocytes % 3.6 % (21.2-54.2); Mean Corpuscular HGB Conc 32.2 GM/DL (32-36); Mean Corpuscular Volume 97.6 FL (87-102); Mean Platelet Volume 11.5 FL (9.6-12.0); Neutrophils % 91.7 % (38.7-73.9); Platelet Count 245 T/CUMM (130-400); Red Blood Count 2.48 MC/CUMM (3.8-5.5); Red Cell Distribution Width 13.3 % (9.3-17.3); White Blood Count 12.7 T/CUMM (4-12)
[2019-11-28 05:06] LABS: Calcium 7.8 MG/DL (8.5-10.1); Osmolality,Calculated 312.1 MOS/KG (273-304)
[2019-11-28 05:30] LABS: Hypochromasia 2+; Lymphocytes 1 % (20-55); Microcytosis 1+; Ovalocytes Slight; Platelet Estimate Adequate; Segmented Neutrophils 98 % (50-85); Total Cells Counted 100
[2019-11-28] MEDS: carvediloL 25 MG TABLET PO SCH ×2 (07:58→16:50)
[2019-11-28] MEDS: CALCIUM (CARBONATE) 500 MG TABLET PO SCH ×3 (08:00→21:12)
[2019-11-28] MEDS: SEVELAMER CARBONATE 800 MG TABLET PO SCH ×3 (08:00→16:50)
[2019-11-28] MEDS: ASCORBIC ACID 500 MG TABLET PO SCH (08:01)
[2019-11-28] MEDS: amLODIPine 5 MG TABLET PO SCH (08:01)
[2019-11-28] MEDS: PANTOPRAZOLE 40 MG VIAL IV SCH (08:02)
[2019-11-28] MEDS: ZINC GLUCONATE 50 MG TABLET PO SCH (08:03)
[2019-11-28] MEDS: ACETAMINOPHEN 325 MG TABLET PO PRN (21:11)
[2019-11-29] MEDS: methylPREDNISolone SOD SUC 125 MG/2 ML VIAL IV SCH (06:30)
[2019-11-29 08:47] LABS: Hematocrit 28.6 VOL% (42.0-52.0); Hemoglobin 9.3 GM/DL (14.0-18.0); Immature Granulocytes % 2.3 %; Immature Granulocytes Absolute 0.29 #; Lymphocytes # 0.3 10*3/uL (1.4-4.0); Lymphocytes % 2.6 % (21.2-54.2); Mean Corpuscular HGB Conc 32.5 GM/DL (32-36); Mean Corpuscular Volume 96.3 FL (87-102); Mean Platelet Volume 11.2 FL (9.6-12.0); Monocytes % 3.8 % (1.7-12.7); Neutrophils % 91.3 % (38.7-73.9); Platelet Count 255 T/CUMM (130-400); Red Blood Count 2.97 MC/CUMM (3.8-5.5); Red Cell Distribution Width 13.7 % (9.3-17.3); White Blood Count 12.5 T/CUMM (4-12)
[2019-11-29 09:04] LABS: Calcium 8.1 MG/DL (8.5-10.1); Osmolality,Calculated 304.2 MOS/KG (273-304)
[2019-11-29 09:11] LABS: Hypochromasia 1+; Lymphocytes 2 % (20-55); Microcytosis 1+; Platelet Estimate Adequate; Segmented Neutrophils 95 % (50-85); Total Cells Counted 100
[2019-11-29] MEDS: CALCIUM (CARBONATE) 500 MG TABLET PO SCH ×3 (09:39→20:15)
[2019-11-29] MEDS: SEVELAMER CARBONATE 800 MG TABLET PO SCH ×3 (09:39→16:58)
[2019-11-29] MEDS: carvediloL 25 MG TABLET PO SCH ×2 (09:40→16:57)
[2019-11-29] MEDS: amLODIPine 5 MG TABLET PO SCH (09:40)
[2019-11-29] MEDS: ASCORBIC ACID 500 MG TABLET PO SCH (09:40)
[2019-11-29] MEDS: ZINC GLUCONATE 50 MG TABLET PO SCH (09:42)
[2019-11-29] MEDS: methylPREDNISolone SOD SUC 40 MG/1 ML VIAL IV SCH (17:41)
[2019-11-30 05:38] LABS: Basophils % 0.1 % (0.0-0.8); Hematocrit 25.9 VOL% (42.0-52.0); Hemoglobin 8.6 GM/DL (14.0-18.0); Immature Granulocytes % 2.6 %; Immature Granulocytes Absolute 0.34 #; Lymphocytes # 0.4 10*3/uL (1.4-4.0); Lymphocytes % 2.7 % (21.2-54.2); Mean Corpuscular HGB Conc 33.2 GM/DL (32-36); Mean Corpuscular Volume 95.9 FL (87-102); Mean Platelet Volume 11.7 FL (9.6-12.0); Monocytes % 4.2 % (1.7-12.7); Neutrophils % 90.4 % (38.7-73.9); Platelet Count 238 T/CUMM (130-400); Red Cell Distribution Width 13.4 % (9.3-17.3); White Blood Count 13.2 T/CUMM (4-12)
[2019-11-30 06:08] LABS: Calcium 8.1 MG/DL (8.5-10.1); Osmolality,Calculated 313.2 MOS/KG (273-304)
[2019-11-30 06:15] LABS: Band Neutrophils 2 % (0-10); Lymphocytes 2 % (20-55); Platelet Estimate Normal; Segmented Neutrophils 93 % (50-85); Total Cells Counted 100
[2019-11-30 06:17] LABS: Anisocytosis 2+; Macrocytosis 1+
[2019-11-30] MEDS: methylPREDNISolone SOD SUC 40 MG/1 ML VIAL IV SCH (06:18)
[2019-11-30] MEDS: ASCORBIC ACID 500 MG TABLET PO SCH (08:55)
[2019-11-30] MEDS: carvediloL 25 MG TABLET PO SCH ×2 (08:55→16:38)
[2019-11-30] MEDS: ZINC GLUCONATE 50 MG TABLET PO SCH (08:56)
[2019-11-30] MEDS: SEVELAMER CARBONATE 800 MG TABLET PO SCH ×3 (08:56→16:37)
[2019-11-30] MEDS: amLODIPine 5 MG TABLET PO SCH (08:56)
[2019-11-30] MEDS: CALCIUM (CARBONATE) 500 MG TABLET PO SCH ×3 (08:56→20:37)
[2019-11-30] MEDS ORDERED: methylPREDNISolone SOD SUC 40 MG/1 ML VIAL IV SCH (18:30)
[2019-11-30] MEDS: hydrOXYzine HCL 25 MG TABLET PO PRN (20:37)
[2019-12-01 06:15] LABS: Basophils % 0.1 % (0.0-0.8); Hematocrit 25.5 VOL% (42.0-52.0); Hemoglobin 8.1 GM/DL (14.0-18.0); Immature Granulocytes % 3.6 %; Immature Granulocytes Absolute 0.41 #; Lymphocytes # 0.5 10*3/uL (1.4-4.0); Lymphocytes % 4.3 % (21.2-54.2); Mean Corpuscular HGB Conc 31.8 GM/DL (32-36); Mean Platelet Volume 11.6 FL (9.6-12.0); Monocytes % 8.3 % (1.7-12.7); Neutrophils % 83.7 % (38.7-73.9); Platelet Count 202 T/CUMM (130-400); Red Blood Count 2.63 MC/CUMM (3.8-5.5); Red Cell Distribution Width 13.8 % (9.3-17.3); White Blood Count 11.3 T/CUMM (4-12)
[2019-12-01 06:34] LABS: Osmolality,Calculated 301.7 MOS/KG (273-304)
[2019-12-01 06:43] LABS: Lymphocytes 7 % (20-55); Platelet Estimate Normal; Segmented Neutrophils 85 % (50-85); Total Cells Counted 100
[2019-12-01 06:44] LABS: Hypochromasia Slight
[2019-12-01] MEDS: SEVELAMER CARBONATE 800 MG TABLET PO SCH ×3 (07:47→16:39)
[2019-12-01] MEDS: ZINC GLUCONATE 50 MG TABLET PO SCH (08:34)
[2019-12-01] MEDS: ASCORBIC ACID 500 MG TABLET PO SCH (08:34)
[2019-12-01] MEDS: CALCIUM (CARBONATE) 500 MG TABLET PO SCH ×3 (08:35→20:41)
[2019-12-01] MEDS: amLODIPine 5 MG TABLET PO SCH (08:35)
[2019-12-01] MEDS: predniSONE 20 MG TABLET PO SCH (08:35)
[2019-12-01] MEDS: carvediloL 25 MG TABLET PO SCH ×2 (08:35→16:40)
[2019-12-01] MEDS: hydrOXYzine HCL 25 MG TABLET PO PRN (20:41)
[2019-12-02 06:44] LABS: Basophils % 0.1 % (0.0-0.8); Hematocrit 25.4 VOL% (42.0-52.0); Hemoglobin 8.2 GM/DL (14.0-18.0); Immature Granulocytes % 4.3 %; Immature Granulocytes Absolute 0.53 #; Lymphocytes # 0.7 10*3/uL (1.4-4.0); Lymphocytes % 5.7 % (21.2-54.2); Mean Corpuscular HGB Conc 32.3 GM/DL (32-36); Mean Corpuscular Volume 97.7 FL (87-102); Mean Platelet Volume 11.7 FL (9.6-12.0); Monocytes % 7.9 % (1.7-12.7); Platelet Count 191 T/CUMM (130-400); Red Cell Distribution Width 13.7 % (9.3-17.3); White Blood Count 12.3 T/CUMM (4-12)
[2019-12-02 07:28] LABS: Hypochromasia 1+; Lymphocytes 5 % (20-55); Microcytosis Slight; Ovalocytes Slight; Platelet Estimate Adequate; Segmented Neutrophils 89 % (50-85); Total Cells Counted 100
[2019-12-02] MEDS: SEVELAMER CARBONATE 800 MG TABLET PO SCH ×3 (09:00→17:52)
[2019-12-02] MEDS: predniSONE 20 MG TABLET PO SCH (09:00)
[2019-12-02] MEDS: ASCORBIC ACID 500 MG TABLET PO SCH (09:00)
[2019-12-02] MEDS: CALCIUM (CARBONATE) 500 MG TABLET PO SCH ×3 (09:00→21:09)
[2019-12-02] MEDS: amLODIPine 5 MG TABLET PO SCH (09:00)
[2019-12-02] MEDS: ZINC GLUCONATE 50 MG TABLET PO SCH (09:00)
[2019-12-02 09:31] LABS: Calcium 7.8 MG/DL (8.5-10.1)
[2019-12-02] MEDS: carvediloL 25 MG TABLET PO SCH ×2 (10:31→17:49)
[2019-12-02] MEDS: hydrOXYzine HCL 25 MG TABLET PO PRN (20:32)
[2019-12-03 05:55] LABS: Basophils % 0.1 % (0.0-0.8); Eosinophils % 0.1 % (0.00-10.9); Hemoglobin 8.2 GM/DL (14.0-18.0); Immature Granulocytes % 4.2 %; Immature Granulocytes Absolute 0.59 #; Lymphocytes # 0.8 10*3/uL (1.4-4.0); Lymphocytes % 5.4 % (21.2-54.2); Mean Corpuscular HGB Conc 31.5 GM/DL (32-36); Mean Corpuscular Volume 99.6 FL (87-102); Mean Platelet Volume 11.8 FL (9.6-12.0); Monocytes % 9.4 % (1.7-12.7); NRBC # 0.02 10*3/uL; Neutrophils % 80.8 % (38.7-73.9); Platelet Count 173 T/CUMM (130-400); Red Blood Count 2.61 MC/CUMM (3.8-5.5)
[2019-12-03 06:02] LABS: Calcium 7.6 MG/DL (8.5-10.1); Osmolality,Calculated 308.5 MOS/KG (273-304)
[2019-12-03 06:52] LABS: Anisocytosis 1+; Lymphocytes 9 % (20-55); Macrocytosis 1+; Metamyelocytes 1 %; Platelet Estimate Normal; Segmented Neutrophils 81 % (50-85); Total Cells Counted 100
[2019-12-03 06:53] LABS: Tear Drop Cells Few
[2019-12-03] MEDS: ZINC GLUCONATE 50 MG TABLET PO SCH (09:19)
[2019-12-03] MEDS: ASCORBIC ACID 500 MG TABLET PO SCH (09:19)
[2019-12-03] MEDS: predniSONE 20 MG TABLET PO SCH ×2 (09:19→09:25)
[2019-12-03] MEDS: SEVELAMER CARBONATE 800 MG TABLET PO SCH ×3 (09:19→17:12)
[2019-12-03] MEDS: amLODIPine 5 MG TABLET PO SCH (09:21)
[2019-12-03] MEDS: carvediloL 25 MG TABLET PO SCH (09:21)
[2019-12-03] MEDS: CALCIUM (CARBONATE) 500 MG TABLET PO SCH ×3 (09:22→21:55)
[2019-12-03] MEDS: hydrOXYzine HCL 25 MG TABLET PO PRN (21:55)
[2019-12-04 06:12] LABS: Basophils % 0.1 % (0.0-0.8); Eosinophils % 0.1 % (0.00-10.9); Hematocrit 24.3 VOL% (42.0-52.0); Hemoglobin 7.8 GM/DL (14.0-18.0); Immature Granulocytes % 2.9 %; Immature Granulocytes Absolute 0.42 #; Lymphocytes # 0.8 10*3/uL (1.4-4.0); Lymphocytes % 5.3 % (21.2-54.2); Mean Corpuscular HGB Conc 32.1 GM/DL (32-36); Mean Corpuscular Volume 99.2 FL (87-102); Mean Platelet Volume 11.8 FL (9.6-12.0); Monocytes % 8.4 % (1.7-12.7); Neutrophils % 83.2 % (38.7-73.9); Platelet Count 161 T/CUMM (130-400); Red Blood Count 2.45 MC/CUMM (3.8-5.5); Red Cell Distribution Width 14.3 % (9.3-17.3); White Blood Count 14.4 T/CUMM (4-12)
[2019-12-04 06:37] LABS: Albumin 2.5 G/DL (3.4-5.0); Bilirubin,Total 0.5 MG/DL (0.2-1.0); Calcium 7.3 MG/DL (8.5-10.1); Osmolality,Calculated 322.1 MOS/KG (273-304); Total Protein 5.9 G/DL (6.4-8.3)
[2019-12-04] MEDS: SEVELAMER CARBONATE 800 MG TABLET PO SCH ×3 (08:25→17:12)
[2019-12-04] MEDS: ASCORBIC ACID 500 MG TABLET PO SCH (08:25)
[2019-12-04] MEDS: CALCIUM (CARBONATE) 500 MG TABLET PO SCH ×3 (08:25→21:24)
[2019-12-04] MEDS: ZINC GLUCONATE 50 MG TABLET PO SCH (08:25)
[2019-12-04] MEDS: predniSONE 20 MG TABLET PO SCH ×2 (08:26→09:08)
[2019-12-04] MEDS: amLODIPine 5 MG TABLET PO SCH (09:00)
[2019-12-04] MEDS ORDERED: SODIUM CHLORIDE 0.9% 1,000 ML IV PRN (13:11)
[2019-12-04] MEDS: POLYETHYLENE GLYCOL POWDER 17 GM PACK PO PRN (13:39)
[2019-12-04] MEDS: hydrOXYzine HCL 25 MG TABLET PO PRN (21:24)
[2019-12-05 05:56] LABS: Basophils % 0.1 % (0.0-0.8); Eosinophils % 0.2 % (0.00-10.9); Hematocrit 24.1 VOL% (42.0-52.0); Hemoglobin 7.7 GM/DL (14.0-18.0); Immature Granulocytes % 2.4 %; Immature Granulocytes Absolute 0.33 #; Lymphocytes # 0.9 10*3/uL (1.4-4.0); Lymphocytes % 6.3 % (21.2-54.2); Mean Corpuscular Volume 99.6 FL (87-102); Mean Platelet Volume 11.6 FL (9.6-12.0); Monocytes % 7.7 % (1.7-12.7); Neutrophils % 83.3 % (38.7-73.9); Platelet Count 161 T/CUMM (130-400); Red Blood Count 2.42 MC/CUMM (3.8-5.5); Red Cell Distribution Width 14.4 % (9.3-17.3)
[2019-12-05 06:37] LABS: Albumin 2.6 G/DL (3.4-5.0); Bilirubin,Total 0.8 MG/DL (0.2-1.0); Calcium 7.9 MG/DL (8.5-10.1); Osmolality,Calculated 323.3 MOS/KG (273-304); Total Protein 5.8 G/DL (6.4-8.3)
[2019-12-05] MEDS: SEVELAMER CARBONATE 800 MG TABLET PO SCH ×3 (08:59→17:26)
[2019-12-05] MEDS: ZINC GLUCONATE 50 MG TABLET PO SCH (08:59)
[2019-12-05] MEDS: amLODIPine 5 MG TABLET PO SCH (08:59)
[2019-12-05] MEDS: hydrOXYzine HCL 25 MG TABLET PO PRN ×2 (08:59→20:43)
[2019-12-05] MEDS: CALCIUM (CARBONATE) 500 MG TABLET PO SCH ×3 (08:59→20:43)
[2019-12-05] MEDS: ASCORBIC ACID 500 MG TABLET PO SCH (08:59)
[2019-12-05] MEDS: predniSONE 20 MG TABLET PO SCH (08:59)
[2019-12-06 06:04] LABS: Basophils % 0.1 % (0.0-0.8); Eosinophils # 0.1 10*3/uL (0.0-0.87); Eosinophils % 0.7 % (0.00-10.9); Hematocrit 24.7 VOL% (42.0-52.0); Hemoglobin 7.8 GM/DL (14.0-18.0); Immature Granulocytes Absolute 0.23 #; Lymphocytes # 1.2 10*3/uL (1.4-4.0); Mean Corpuscular HGB Conc 31.6 GM/DL (32-36); Mean Corpuscular Volume 100.4 FL (87-102); Mean Platelet Volume 11.9 FL (9.6-12.0); Monocytes % 9.4 % (1.7-12.7); Neutrophils % 77.8 % (38.7-73.9); Platelet Count 144 T/CUMM (130-400); Red Blood Count 2.46 MC/CUMM (3.8-5.5); Red Cell Distribution Width 14.6 % (9.3-17.3); White Blood Count 11.5 T/CUMM (4-12)
[2019-12-06 06:19] LABS: Calcium 8.1 MG/DL (8.5-10.1); Osmolality,Calculated 303.3 MOS/KG (273-304)
[2019-12-06] MEDS ORDERED: SODIUM CHLORIDE 0.9% 1,000 ML IV PRN ×2 (07:48→09:30)
[2019-12-06] MEDS: SEVELAMER CARBONATE 800 MG TABLET PO SCH ×3 (08:46→17:26)
[2019-12-06] MEDS: amLODIPine 5 MG TABLET PO SCH (08:47)
[2019-12-06] MEDS: CALCIUM (CARBONATE) 500 MG TABLET PO SCH ×3 (08:47→20:47)
[2019-12-06] MEDS: predniSONE 20 MG TABLET PO SCH (08:47)
[2019-12-06] MEDS: ZINC GLUCONATE 50 MG TABLET PO SCH (08:47)
[2019-12-06] MEDS: ASCORBIC ACID 500 MG TABLET PO SCH (08:47)
[2019-12-06] MEDS: hydrOXYzine HCL 25 MG TABLET PO PRN (11:41)
[2019-12-07 06:42] LABS: Basophils % 0.1 % (0.0-0.8); Eosinophils # 0.1 10*3/uL (0.0-0.87); Eosinophils % 0.6 % (0.00-10.9); Hematocrit 29.1 VOL% (42.0-52.0); Hemoglobin 9.2 GM/DL (14.0-18.0); Immature Granulocytes % 1.1 %; Immature Granulocytes Absolute 0.16 #; Lymphocytes # 1.1 10*3/uL (1.4-4.0); Lymphocytes % 7.9 % (21.2-54.2); Mean Corpuscular HGB Conc 31.6 GM/DL (32-36); Mean Corpuscular Volume 100.3 FL (87-102); Mean Platelet Volume 12.2 FL (9.6-12.0); Neutrophils % 83.3 % (38.7-73.9); Platelet Count 152 T/CUMM (130-400); Red Cell Distribution Width 15.2 % (9.3-17.3); White Blood Count 14.3 T/CUMM (4-12)
[2019-12-07 06:58] LABS: Calcium 8.3 MG/DL (8.5-10.1); Osmolality,Calculated 307.3 MOS/KG (273-304)
[2019-12-07] MEDS ORDERED: NEOMYCIN/POLYMYXIN IRRIG SOLN 1 ML AMP BLADDERIRR ONE (07:15)
[2019-12-07] MEDS: SODIUM CHLORIDE 0.9% 250 ML IV SCH ×2 (07:18→10:01)
[2019-12-07] MEDS ORDERED: cefTRIAXone 500 MG VIAL ONE (07:40)
[2019-12-07] MEDS ORDERED: FAMOTIDINE 20 MG/2 ML VIAL IV ONE (07:41)
[2019-12-07] MEDS ORDERED: MIDAZOLAM 2 MG/2 ML VIAL ONE (07:42)
[2019-12-07] MEDS ORDERED: LIDOCAINE 2% 5 ML VIAL ONE (07:42)
[2019-12-07] MEDS ORDERED: propofoL 200 MG/20 ML VIAL IV ONE (07:42)
[2019-12-07] MEDS ORDERED: fentaNYL 250 MCG/5 ML VIAL ONE (07:42)
[2019-12-07] MEDS ORDERED: ONDANSETRON 4 MG/2 ML VIAL ONE (07:42)
[2019-12-07] MEDS ORDERED: SUCCINYLCHOLINE 200 MG/10 ML VIAL ONE (07:43)
[2019-12-07] MEDS ORDERED: ROCURONIUM 100 MG/10 ML VIAL IV ONE ×2 (07:43→10:57)
[2019-12-07] MEDS ORDERED: methylPREDNISolone SOD SUC 125 MG/2 ML VIAL ONE (07:43)
[2019-12-07] MEDS ORDERED: SUGAMMADEX 200 MG/2 ML VIAL IV ONE (07:44)
[2019-12-07] MEDS ORDERED: HYDROmorphone 2 MG/1 ML VIAL ONE (09:57)
[2019-12-07] MEDS: SEVELAMER CARBONATE 800 MG TABLET PO SCH ×3 (09:59→18:34)
[2019-12-07] MEDS: ZINC GLUCONATE 50 MG TABLET PO SCH (10:00)
[2019-12-07] MEDS: CALCIUM (CARBONATE) 500 MG TABLET PO SCH ×3 (10:00→21:05)
[2019-12-07] MEDS: ASCORBIC ACID 500 MG TABLET PO SCH (10:00)
[2019-12-07] MEDS ORDERED: SEVOFLURANE 1 UNIT/15 MINUTE INH ONE (10:57)
[2019-12-07] MEDS ORDERED: PHENYLEPHRINE 1 MG/10 ML SYRINGE IV ONE (10:57)
[2019-12-07 11:17] LABS: Hematocrit 31.7 VOL% (42.0-52.0)
[2019-12-07] MEDS: HYDROmorphone PCA 30 MG/30 ML SYRINGE IV SCH (12:12)
[2019-12-07] MEDS: predniSONE 20 MG TABLET PO SCH (12:33)
[2019-12-07] MEDS: amLODIPine 5 MG TABLET PO SCH (12:33)
[2019-12-07] MEDS ORDERED: HEPARIN 10,000 UNIT/10 ML VIAL IV SCH (16:15)
[2019-12-08 06:28] LABS: Basophils % 0.1 % (0.0-0.8); Eosinophils % 0.1 % (0.00-10.9); Hematocrit 28.5 VOL% (42.0-52.0); Hemoglobin 8.9 GM/DL (14.0-18.0); Immature Granulocytes % 0.7 %; Immature Granulocytes Absolute 0.12 #; Lymphocytes # 0.6 10*3/uL (1.4-4.0); Lymphocytes % 3.4 % (21.2-54.2); Mean Corpuscular HGB Conc 31.2 GM/DL (32-36); Mean Corpuscular Volume 101.8 FL (87-102); Mean Platelet Volume 11.9 FL (9.6-12.0); Monocytes % 7.5 % (1.7-12.7); Neutrophils % 88.2 % (38.7-73.9); Platelet Count 138 T/CUMM (130-400); Red Cell Distribution Width 15.5 % (9.3-17.3); White Blood Count 17.6 T/CUMM (4-12)
[2019-12-08 06:33] LABS: Calcium 8.3 MG/DL (8.5-10.1)
[2019-12-08 06:59] LABS: Hypochromasia 2+; Lymphocytes 4 % (20-55); Microcytosis Slight; Segmented Neutrophils 91 % (50-85); Total Cells Counted 100
[2019-12-08] MEDS: CALCIUM (CARBONATE) 500 MG TABLET PO SCH ×3 (09:35→21:46)
[2019-12-08] MEDS: amLODIPine 5 MG TABLET PO SCH (09:36)
[2019-12-08] MEDS: ZINC GLUCONATE 50 MG TABLET PO SCH (09:37)
[2019-12-08] MEDS: predniSONE 20 MG TABLET PO SCH (09:37)
[2019-12-08] MEDS: SEVELAMER CARBONATE 800 MG TABLET PO SCH ×3 (09:38→17:42)
[2019-12-08] MEDS: ASCORBIC ACID 500 MG TABLET PO SCH (09:38)
[2019-12-08] MEDS: HYDROmorphone PCA 30 MG/30 ML SYRINGE IV SCH (12:06)
[2019-12-08] MEDS ORDERED: oxyCODONE/ACETAMINOPHEN 5-325 MG TABLET PO PRN (13:02)
[2019-12-08] MEDS ORDERED: predniSONE 10 MG TABLET PO SCH (16:59)
[2019-12-08] MEDS: POLYETHYLENE GLYCOL POWDER 17 GM PACK PO PRN (23:59)
[2019-12-09 05:24] LABS: Basophils % 0.1 % (0.0-0.8); Hematocrit 24.2 VOL% (42.0-52.0); Hemoglobin 7.6 GM/DL (14.0-18.0); Immature Granulocytes % 0.8 %; Immature Granulocytes Absolute 0.12 #; Lymphocytes # 0.3 10*3/uL (1.4-4.0); Lymphocytes % 2.2 % (21.2-54.2); Mean Corpuscular HGB Conc 31.4 GM/DL (32-36); Mean Corpuscular Volume 100.4 FL (87-102); Monocytes % 5.2 % (1.7-12.7); Neutrophils % 91.7 % (38.7-73.9); Platelet Count 105 T/CUMM (130-400); Red Blood Count 2.41 MC/CUMM (3.8-5.5); Red Cell Distribution Width 15.6 % (9.3-17.3); White Blood Count 15.2 T/CUMM (4-12)
[2019-12-09 05:43] LABS: Osmolality,Calculated 292.1 MOS/KG (273-304)
[2019-12-09 05:45] LABS: Hypochromasia 2+; Lymphocytes 2 % (20-55); Microcytosis 1+; Ovalocytes Slight; Platelet Estimate Decreased; Segmented Neutrophils 92 % (50-85); Total Cells Counted 100
[2019-12-09] MEDS ORDERED: SODIUM CHLORIDE 0.9% 1,000 ML IV PRN (07:38)
[2019-12-09] MEDS: SEVELAMER CARBONATE 800 MG TABLET PO SCH ×2 (08:22→15:43)
[2019-12-09] MEDS: ZINC GLUCONATE 50 MG TABLET PO SCH (08:22)
[2019-12-09] MEDS: CALCIUM (CARBONATE) 500 MG TABLET PO SCH ×2 (08:22→15:43)
[2019-12-09] MEDS: ASCORBIC ACID 500 MG TABLET PO SCH (08:22)
[2019-12-09] MEDS ORDERED: INFLUENZA VIRUS VACCINE 0.5 ML SYRINGE IM ONE (09:00)
[2019-12-09 15:19] VITALS: BP 135/76
[2019-12-09] MEDS: amLODIPine 5 MG TABLET PO SCH (15:43)
== END 2019-12-09 15:58 | disposition home or self-care (01) | DRG 659 ==
LOC: N.ED 11:46 → N.EDINP 15:09 → INTOOBSV 15:09 → N.TELES 17:24 → SUATTDRO 11-18 14:01 → N.CC 11-20 08:57 → N.2E 11-28 19:32 → N.3E 12-06 16:10
PROVIDERS: ADMIT Internal Medicine; ATTEND Internal Medicine